=== PATIENT | male | born 1940 | race Caucasian/White ===

== ENCOUNTER → 2017-03-26 18:30 | Outpatient (CLI) | payer MEDICARE, BC | END | disposition home or self-care (01) | LOC: D.LABREF 18:30 | DX: R31.9 Hematuria, unspecified (principal) ==

== ENCOUNTER → 2017-03-29 08:58 | Outpatient (CLI) | payer MEDICARE, BC | END | disposition home or self-care (01) | LOC: D.CT 08:58 | DX: R31.9 Hematuria, unspecified (principal) ==

== ENCOUNTER 2017-05-02 06:11 | Day surgery (SDC) | payer MEDICARE, BC ==
--- NOTE | 2017-04-30 16:29 | NUR ---
04/30/17: KELLY AT DR. ADAM'S OFFICE NOTIFIED PATIENT HAD CORONARY STENT PLACE 04/26/17 & IS CURRENTLY TAKING PLAVIX 75MG DAILY. STATES DR. ADAM IS AWARE & PLAVIX DOES NOT NEED TO BE HELD PRIOR TO PROCEDURE SCHEDULED FOR 05/02
[2017-05-01 09:55] LABS: HEMATOCRIT 40.5 % (42.0-54.0); HEMOGLOBIN 14.6 g/dL (13.5-17.5); MCH 36.6 pg (26.0-34.0); MCV 101.5 fL (80.0-100.0); MEAN PLATELET VOLUME 10.4 fL (7.4-10.4); RBC 3.99 10x6/uL (4.20-6.10); RDW 12.6 % (11.5-14.5); WBC 4.8 10x3/uL (4.8-10.8)
[~2017-05-02 06:11] MED LIST: ASPIRIN EC81 M1 PO; LISINOPRIL10 MG PO; PLAVIX75 MG PO; ZYLOPRIM100 MG PO
[2017-05-02 06:36] VITALS: BMI 27.4
--- NOTE | 2017-05-02 10:07 | NUR ---
1005 DISCHARGE INSTRUCTIONS GIVEN. PT HAS NO QUESTIONS OR CONCERNS AT THIS TIME. PRESCRIPTION FOR FINASTERIDE GIVEN. ESCORTED OUT BY VOLUNTEER.
--- NOTE | 2017-05-02 12:49 | OP ---
PATIENT NAME: MARIA LUISA ALCANTAR MEDICAL RECORD: [id number] :40 LOCATION:D.OPS ADMISSION DATE: SURGEON: OMER ADAM MD DATE OF OPERATION: 05/02/2017 SURGEON: Omer Adam MD ANESTHESIA: TIVA by Virgil Martin CRNA PREOPERATIVE DIAGNOSIS: Gross hematuria. PROCEDURES: Cystoscopy and bladder clot evacuation. FINDINGS: Vascular bulbar urethra, vascular and very enlarged prostate. Clots in the bladder. No bladder tumors seen, but visualization is limited by bleeding from the prostate. SPECIMENS: None. CLINICAL HISTORY: This is a 76-year-old male who has complained of dysuria and passage of dark red blood clots. He is a former one-pack a day smoker for 25 years and he quit in 1981. He has also had two TURPs performed by Dr. Lozada. The last one was 5-6 years ago. This was for BPH. I did a workup including CT and urine cytology and these were negative. He comes today for cystoscopy. He recently had another coronary artery stent placed for his cardiovascular disease and he is on Plavix. We did not stop his Plavix. He is not allergic to any medications and he was given Ancef 1 gram IV money market clerk to the OR. DESCRIPTION OF PROCEDURE: The patient was given IV sedation. He was placed in the dorsal lithotomy position and Uro-Jet lidocaine jelly was placed into the urethra. A 17-Paraguayan cystoscope with 30-degree lens was used for visualization. Penile urethra was normal. Going into the bulbar urethra, there was significant vascularity there. Going into the prostate, he has an extremely enlarged prostate, which is very vascular. No tumors were seen in the prostatic urethra. Going into the bladder neck, there were some blood clots visible. On looking around in the bladder with the visualization limited by ongoing bleeding from the prostatic veins, I did not see any tumors. An [employer] evacuator was used to help remove the blood clots. The bladder was then emptied through the cystoscope sheath and the scope was removed. I will get the patient started on finasteride. He will need to be on Plavix for a period of time due to his recent coronary artery stent. In the meantime, the finasteride will hopefully help to shrink his prosthetic veins as well as the prostate. TRANSINT:[id number] Voice Confirmation ID: [id number] DOCUMENT ID: [id number] OMER ADAM MD at 1249 CC: [id number] DICTATION DATE: 05/02/17913 SEALING MACHINE OPERATOR: 05/02/17 1158 [facility] 05/02/17 [facility] [address] [place] [address]
== END 2017-05-02 10:11 | disposition home or self-care (01) ==
LOC: D.OPS 06:11
PROVIDERS: Anesthesiology
DX: R31.9 Hematuria, unspecified (principal); I25.10 Atherosclerotic heart disease of native coronary artery without angina pectoris; I10 Essential (primary) hypertension; Z95.5 Presence of coronary angioplasty implant and graft; N40.0 Benign prostatic hyperplasia without lower urinary tract symptoms; Z01.812 Encounter for preprocedural laboratory examination

== ENCOUNTER → 2018-01-27 16:11 | Outpatient (CLI) | payer MEDICARE, BC ==
[~2018-01-27 16:11] MED LIST changes: +FOLIC ACID1 MG PO; +MULTIPLE VITAMI1 TA1 PO; +PRAVACHOL20 MG
== END | disposition home or self-care (01) ==
LOC: D.LABREF 16:11
DX: R31.9 Hematuria, unspecified (principal)

== ENCOUNTER 2018-03-13 07:40 | Day surgery (SDC) | payer MEDICARE, BC ==
[2018-03-12 09:19] LABS: BASOPHILS 0.4 % (0-2); EOSINOPHILS 2.6 % (0-7); HEMATOCRIT 40.7 % (42.0-54.0); HEMOGLOBIN 14.4 g/dL (13.5-17.5); IMMATURE GRANULOCYTES 0.2 % (0-5); MCH 35.4 pg (26.0-34.0); MCHC 35.4 g/dL (31.0-37.0); MEAN PLATELET VOLUME 10.3 fL (7.4-10.4); MONOCYTES 10.5 % (2-11); NEUTROPHILS 64.3 % (40-80); PLATELET COUNT 119 10x3/uL (130-400); RBC 4.07 10x6/uL (4.20-6.10); RDW 12.8 % (11.5-14.5); WBC 5.4 10x3/uL (4.8-10.8)
[2018-03-12 09:46] LABS: ANION GAP 12.9 mmol/L (8-16); CALCIUM 8.3 mg/dL (8.5-10.1); CARBON DIOXIDE 25.5 mmol/L (21.0-32.0); CREATININE - SERUM 1.1 mg/dL (0.6-1.3); POTASSIUM - SERUM 4.4 mmol/L (3.5-5.1)
[~2018-03-13] VITALS: Ht 177.8 cm; Wt 88.0 kg
--- NOTE | ~2018-03-13 | OP ---
PATIENT NAME: MARIA LUISA ALCANTAR MEDICAL RECORD: [id number] :40 LOCATION:D.OPS ADMISSION DATE: SURGEON: OMER ADAM MD DATE OF OPERATION: 03/13/2018 SURGEON: Omer Adam MD ANESTHESIA: General anesthesia by Adelaide Pena CRNA DIAGNOSIS: Obstructive BPH with episodic gross hematuria. PROCEDURES: Cystoscopy. GreenLight laser transurethral resection of the prostate, power 80-120 rivera, laser on time 34 minutes and 37 seconds, energy was 184,813 kilojoules. FINDINGS: Massive trilobar hyperplasia of the prostate with high vascularity of the prostate. Mucosal bullae. Single ureteral orifices bilaterally. These are located close to the bladder neck. No bladder tumors. BLOOD LOSS: Minimal. CLINICAL HISTORY: This is a 77-year-old male who has symptoms of obstructive voiding. He has primarily issues with episodes of gross hematuria. He was fully worked up with CT scan and urine cytology. He had cystoscopy, which showed obstructive BPH with very large veins on his prostate. He is on Plavix for coronary artery stents. He has also had issues with urinary tract infections. I had him on finasteride and he was tolerating this. Eventually, he developed a symptomatic right inguinal hernia. He wished to have a right inguinal hernia repair done at the same time that he had a GreenLight laser TURP done. Therefore, earlier today, Dr. Darby performed right inguinal hernia repair on him. I am now continuing on with the same anesthetic to perform the GreenLight TURP. He is not allergic to any medications. He was given Ancef on-call to the OR. DESCRIPTION OF PROCEDURE: The patient was already in lithotomy position and he was under general anesthetic. Cystoscopy was performed using a 30-degree lens and the laser resectoscope with the visual obturator. Very massive bilateral lateral lobes were seen. The verumontanum was seen but it was located in the level of the [id number] one-third of the ureter i.e., a lot of the prostate extends distal to the verumontanum level. Prostate was very vascular. The bladder neck was elevated. The ureteral orifices were seen with some difficulty as they were relatively close to the bladder neck and the scope had to be angled downwards quite significantly in order to see them. Because the ureteral orifices were somewhat lateral in position, most of the resection of the bladder neck was confined to the 6 o'clock region. With the power initially at 80 rivera, I started the resection in the posterior floor and started to devascularize the prostatic urethra. As I went on, I started taking down the right lateral lobe and eventually the left lateral lobe. We had significant bleeding from the anterior fibromuscular stroma. I had to turn the scope upside down and resect this quite significantly in order to stop the bleeding from that area. While we were in the anterior portion of the prostatic urethra, the top of both lateral lobes was also taken down. This left the mid portion of the lateral lobes as well as the posterior portion of the lateral lobes intact. Continuing on with resection of the right lateral lobe, as I approached the level of verumontanum, I encountered quite significant bleeding. This was at OPERATIVE REPORT [id number] MARIA LUISA ALCANTAR the posterior wall of the urethra where the posterior wall meets the inferior edge of the right lateral lobe. As I continued to takedown the right lateral lobe to expose this area, I eventually had to take the verumontanum also to uniformly have the entire posterior surface coagulated. Finally, I found the culprit, a small artery right here at the apex on the right lateral lobe. I went up directly with the laser fiber to it, and using the coagulation setting, I was finally able to stop its bleeding. However, for most of the course, it had been continuously bleeding with its small stream of blood. The left lateral lobe was taken down without too much incidents. At the end of the procedure, we had a clear passageway all the way through to the bladder neck. The ureteral orifices were still intact. The prostatic urethra was rather irregular right now. Therefore, I removed the laser fiber entirely and I placed a Sensor wire into the bladder. The scope was then removed. Over the Sensor wire, we placed a 22-Syriac 3-way Stevens catheter which had been converted to a Ovett tip catheter. Once the catheter was fully in the bladder, then the wire was removed entirely and the balloon was inflated with 20 cc of sterile water. The drainage was quite clear. We put a catheter plug into the inflow port. The Stevens catheter was put to bag drainage. The patient will be going home today. He will come back to the office tomorrow to have the Stevens catheter removed for a voiding trial. TRANSINT:[id number] Voice Confirmation ID: [id number] DOCUMENT ID: [id number] OMER ADAM MD at 2220 CC: [id number] DICTATION DATE: 03/13/18 152 LINE AND FRAME POLER: 03/13/18 1842 [facility] 03/13/18 [place] [id number] [place] [id number]
--- NOTE | ~2018-03-13 | OP ---
PATIENT NAME: MARIA LUISA ALCANTAR MEDICAL RECORD: [id number] :40 LOCATION:D.OPS ADMISSION DATE: SURGEON: NICHO RIDER MD DATE OF OPERATION: 03/13/2018 PREOPERATIVE DIAGNOSES: 1. Right inguinal hernia. 2. Hypertension. 3. Obstructive BPH. 4. Coronary artery disease. POSTOPERATIVE DIAGNOSES: 1. Right inguinal hernia. 2. Hypertension. 3. Obstructive BPH. 4. Coronary artery disease. PROCEDURE: Right inguinal hernia repair with medium PHS mesh. SURGEON: Nicho Rider MD REPORT OF PROCEDURE: The patient's right groin was prepped and draped in sterile fashion. An oblique incision was made above the inguinal ligament. Electrocautery was used to dissect through the subcutaneous tissues to the external oblique fascia. This fascia was incised with electrocautery and we entered the inguinal canal. The spermatic cord was elevated and a Santosh was placed around it. The ilioinguinal nerve was found and high ligated. The patient had an indirect hernia defect. This was freed up from the spermatic cord and pushed back into the abdominal cavity. The preperitoneal space of Retzius was opened up and a medium PHS mesh was inserted. This was sutured down on all 4 sides using multiple interrupted #0 Vicryls. The wound was then irrigated out with normal saline. The external oblique fascia was closed with running 2-0 Vicryls, the Nahum's was closed with interrupted 3-0 Vicryl, and the skin was closed with running subcutaneous 5-0 Monocryl. A 10 mL of 0.25% Marcaine with epinephrine was infused into the surrounding tissues and the wound was dressed appropriately. COMPLICATIONS: None. CONDITION: Stable. ANESTHESIA: General endotracheal and local. BLOOD LOSS: Minimal. TRANSINT:[id number] Voice Confirmation ID: [id number] DOCUMENT ID: [id number] OPERATIVE REPORT [id number] ORTIZNICHO WINN MD at 0918 CC: [id number] DICTATION DATE: 03/13/18 1508 WHITE WORK CLEANER: 03/13/18 1817 [facility] 03/13/18 [place] [address]
[~2018-03-13 07:40] MED LIST changes: -FOLIC ACID1 MG PO; -MULTIPLE VITAMI1 TA1 PO; -PRAVACHOL20 MG
[2018-03-13] MEDS ORDERED: PRAVACHOL20 MG (08:32)
[2018-03-13] MEDS ORDERED: FOLIC ACID1 MG PO (08:32)
[2018-03-13] MEDS ORDERED: MULTIPLE VITAMI1 TA1 PO (08:33)
[2018-03-13 08:34] VITALS: BP 131/88; Ht 177.8 cm; Wt 88.0 kg
== END 2018-03-13 17:25 | disposition home or self-care (01) ==
LOC: D.OPS 07:40 → D.PAN 09:00 → D.OPS 09:00 → D.PAN 09:55 → D.OPS 09:55
PROVIDERS: Surgery
DX: K40.90 Unilateral inguinal hernia, without obstruction or gangrene, not specified as recurrent (principal); N40.0 Benign prostatic hyperplasia without lower urinary tract symptoms

== ENCOUNTER → 2018-03-19 15:16 | Outpatient (CLI) | payer MEDICARE, BC ==
[2018-03-13 08:34] VITALS: BMI 27.8
[~2018-03-19 15:16] MED LIST changes: +FOLIC ACID1 MG PO; +MULTIPLE VITAMI1 TA1 PO; +PRAVACHOL20 MG
== END | disposition home or self-care (01) ==
LOC: D.LABREF 15:16
DX: N39.0 Urinary tract infection, site not specified (principal)

== ENCOUNTER → 2018-04-03 06:35 | Day surgery (SDC) | payer MEDICARE, BC ==
[2018-04-02 12:18] LABS: HEMATOCRIT 38.4 % (42.0-54.0); HEMOGLOBIN 13.9 g/dL (13.5-17.5); MCH 35.7 pg (26.0-34.0); MCHC 36.2 g/dL (31.0-37.0); MCV 98.7 fL (80.0-100.0); MEAN PLATELET VOLUME 10.1 fL (7.4-10.4); RBC 3.89 10x6/uL (4.20-6.10); RDW 12.5 % (11.5-14.5); WBC 5.4 10x3/uL (4.8-10.8)
[~2018-04-03] VITALS: Ht 179.1 cm; Wt 86.6 kg
--- NOTE | ~2018-04-03 | OP ---
PATIENT NAME: MARIA LUISA ALCANTAR MEDICAL RECORD: [id number] :40 LOCATION:D.OPS ADMISSION DATE: SURGEON: OMER ADAM MD DATE OF OPERATION: 04/03/2018 SURGEON: Omer Adam MD ANESTHESIA: MAC by Luciano Gomez CRNA. DIAGNOSIS: Post-TURP bleeding. PROCEDURE: Cystoscopy and fulguration of prostatic drain. FINDINGS: Sloughing tissue from recent prostate resection. No obvious bleeding source seen. BLOOD LOSS: None. CLINICAL HISTORY: This is a 77-year-old male, who had urinary retention. He had the GreenLight laser TURP on 03/13/2018. He continued to have complaints of ongoing dripping of blood per the urethra. He thought that this may also represent incontinence of urine. Finally, I decided to proceed with fulguration of any possible venous bleeding. His preoperative hemoglobin was 13.9, so he clearly is not anemic. He is not allergic to any medications. He was given Ancef medical director occupational health to the OR. DESCRIPTION OF PROCEDURE: The patient was given IV sedation. He was then placed in the dorsal lithotomy position and prepped and draped. Cystoscopy was performed using a 21-Maori cystoscope with 30-degree lens. I used the ball tip Bugbee electrode also for fulguration. Going in, I saw no urethral strictures. The prostatic urethra shows signs of previous resection and there is some sloughing tissue present all along the prostatic urethra. There is still some residual BPH at the apex, where I did not fully resect the apex to preserve continence. There are some veins on this tissue and I used the Bugbee electrode to cauterize these veins. Going in, there were some small areas of redness seen, which may possibly represent some venous bleeding and these were all coagulated. At the end of the procedure, I could see no other areas of redness, which may potentially represent a bleeder. Going into the bladder, the ureteral orifices were intact and no bladder tumors were seen. The bladder was then emptied through the scope sheath and the scope was removed. TRANSINT:[id number] Voice Confirmation ID: [id number] DOCUMENT ID: [id number] OMER ADAM MD at 1128 CC: [id number] DICTATION DATE: 04/03/18 1031 SPECIAL WEAPONS AND TACTICS OFFICER: 04/03/18 1040 [facility] [address] [place] [address]
[2018-04-03 08:08] VITALS: BP 137/85; Ht 179.1 cm; Wt 86.6 kg
== END | disposition home or self-care (01) ==
LOC: D.OPS 06:35 → D.PAN 10:15 → D.OPS 10:15
PROVIDERS: Anesthesiology
DX: N99.820 Postprocedural hemorrhage of a genitourinary system organ or structure following a genitourinary system procedure (principal); Z01.812 Encounter for preprocedural laboratory examination